=== PATIENT | female | born 1975 | race Caucasian/White ===

== ENCOUNTER → 2018-11-27 | Outpatient (CLI) | payer MEDICAID | LOC: CLAB 16:30 → CIMAGING 16:35 | DX: M25.552 Pain in left hip (principal) ==

== ENCOUNTER → 2018-12-11 | Outpatient (CLI) | payer MEDICAID | LOC: CIMAGING 11:06 | PROVIDERS: ATTEND Family Medicine | DX: R05 Cough (principal); R07.89 Other chest pain | CPT/HCPCS: 36415-PO; 71046-PO ==

== ENCOUNTER → 2019-01-02 | Outpatient (CLI) | payer MEDICAID | LOC: EMCIMAGING 14:12 | PROVIDERS: ATTEND Family Medicine | DX: Z12.31 Encounter for screening mammogram for malignant neoplasm of breast (principal); N85.4 Malposition of uterus; N83.202 Unspecified ovarian cyst, left side | CPT/HCPCS: 76856-PN; 77067-PN ==

== ENCOUNTER → 2019-01-29 | Outpatient (CLI) | payer MEDICAID | LOC: EMCIMAGING 08:36 | PROVIDERS: ATTEND Family Medicine | DX: R92.8 Other abnormal and inconclusive findings on diagnostic imaging of breast (principal) | CPT/HCPCS: 749606PN ==